=== PATIENT | male | born 1935 | race Hispanic/Latino ===

== ENCOUNTER 2018-05-10 03:48 | Emergency (ER) | payer MEDICARE ==
[2018-05-10 04:16] VITALS: BP 140/108
--- NOTE | 2018-05-10 04:20 | Emergency Department Report ---
ED Shortness of Breath HPI - General Stated Complaint: SOB Time Seen by Provider: 05/10/18 04:06 - History of Present Illness Initial Comments: 82-year-old male with metastatic esophageal cancer, PE presents to ED with difficulty breathing since yesterday. Patient was discharged from [facility] 2 days ago following an admission for dehydration due to issues with his PEG tube. Patient also had breathing trouble during that admission. Daughter states patient's O2 sat was checked prior to discharge and was found to be normal so he was discharged without oxygen. EMS was called this morning, states room air sats were in the 70s. Mental status has declined, per daughter. Daughter states patient is not currently in Hospice care or palliative care, however, he is DNR/DNI. Daughter states patient has been in and out of the hospital over the last 3 weeks, states she is no longer able to care for him at home. Daughter states that at this point, she does not want any invasive testing or treatment, only wants hime to be comfortable. PCP: Thanh HUGGINS Complaint: shortness of breath -: days(s) (1) Severity: severe Consistency: constant Improves With: nothing Worsens With: nothing Known History Of: other (metastatic cancer) Treatments Prior to Arrival: oxygen - Related Data Home Oxygen Therapy: No Allergies Allergy/AdvReac Type Severity Reaction Status Date / Time No Known Allergies Allergy Unverified 05/10/18 04:48 ED Review of Systems ROS: Stated complaint: SOB Other details as noted in HPI Comment: Unobtainable due to pts medical conditions (altered mental status) ED Physical Exam - General General appearance: lethargic - Head Head exam: Present: atraumatic, normocephalic - ENT ENT exam: Present: mucous membranes dry - Neck Neck exam: Present: normal inspection - Respiratory Respiratory exam: Present: decreased breath sounds - Cardiovascular Cardiovascular Exam: Present: normal rhythm, tachycardia - GI/Abdominal GI/Abdominal exam: Present: soft, other (PEG tube in place). Absent: distended - Extremities Exam Extremities exam: Present: other (2+ edema to extremities) - Neurological Exam Neurological exam: Present: other (pt moans to questioning, nonverbal) - Skin Skin exam: Present: warm, dry ED Course Vital Signs 05/10/18 05/10/18 05/10/18 03:55 04:01 04:09 Temperature 97.6 F Pulse Rate 105 H 106 H Respiratory 29 H 18 Rate Blood Pressure 147/66 140/108 O2 Sat by Pulse 99 99 98 Oximetry 05/10/18 05/10/18 04:15 04:40 Temperature Pulse Rate 104 H 103 H Respiratory 8 L 22 Rate Blood Pressure 140/108 140/108 O2 Sat by Pulse 100 99 Oximetry - Reevaluation(s) Reevaluation #1: 05/10/18 04:50 While information security in the room, daughter instructed him not to draw any labs. Also does not want chest xray. Daughter requesting that we remove BiPAP from patient and allow natural . Pt no longer responsive at all. Reevaluation #2: 05/10/18 05:35 Daughter at bedside. Pt pulseless, asystole. No spontaneous breaths. Time of 05:28. ED Medical Decision Making - EKG Data -: EKG Interpreted by Me EKG shows normal: sinus rhythm, intervals, QRS complexes, ST-T waves Rate: tachycardia (rate 106) - EKG Data Interpretation: no acute changes - Differential Diagnosis pulm edema, saddle PE, electrolyte abnormality Critical care attestation.: If time is entered above; I have spent that time in minutes in the direct care of this critically ill patient, excluding procedure time. ED Disposition Clinical Impression: Cardiac arrest, Metastatic cancer Disposition: DC-20 Is pt being admited?: No Condition: Stable Referrals: KIYA CRISOSTOMO MD [Primary Care Provider] - 3-5 Days Time of Disposition: 05:36
== END 2018-05-10 07:02 ==
LOC: ED 03:48
DX: I46.9 Cardiac arrest, cause unspecified (principal); C79.9 Secondary malignant neoplasm of unspecified site
CPT/HCPCS: 93005; 93010